=== PATIENT | female | born 1955 | race Caucasian/White ===

== ENCOUNTER 2022-03-25 12:06 | Emergency (ER) | payer OTHER ==
[~2022-03-25] VITALS: Ht 152.4 cm; Wt 51.0 kg
[2022-03-25] MEDS ORDERED: IBUPROFEN 600MG TABLET PO STA (12:53)
[2022-03-25 13:15] VITALS: BP 165/65
[2022-03-25] MEDS ORDERED: NAPR-681 PO (14:56)
[2022-03-25] MEDS ORDERED: TRAM50TA3 PO (14:56)
== END 2022-03-25 16:14 | disposition home or self-care (01) ==
LOC: ER 12:06
DX: S83.91XA Sprain of unspecified site of right knee, initial encounter (principal); X58.XXXA Exposure to other specified factors, initial encounter; Y93.89 Activity, other specified; Y92.89 Other specified places as the place of occurrence of the external cause; Y99.8 Other external cause status
CPT/HCPCS: 73562; 99283; Z7610